=== PATIENT | female | born 1990 | race Caucasian/White ===

== ENCOUNTER → 2020-05-26 13:50 | Outpatient (BNVA) | payer MEDICAID, SELFPAY | PROVIDERS: Visit Provider Nurse Practitioner Women's Health | DX: O99.331 Smoking (tobacco) complicating pregnancy, first trimester (principal); F17.210 Nicotine dependence, cigarettes, uncomplicated; O26.841 Uterine size-date discrepancy, first trimester; Z3A.10 10 weeks gestation of pregnancy | CPT/HCPCS: 80307; 81000 ==

== ENCOUNTER → 2020-06-12 11:45 | Outpatient (BNVA) | payer MEDICAID, SELFPAY | PROVIDERS: Visit Provider Obstetrics & Gynecology | DX: Z34.81 Encounter for supervision of other normal pregnancy, first trimester (principal) | CPT/HCPCS: 80053; 80307; 81000; 85027; 86592; 86762; 86803; 86850; 86900; 87340; 87491; 87591; 88175 ==

== ENCOUNTER → 2020-06-29 13:53 | Outpatient (BNVA) | payer MEDICAID, SELFPAY | PROVIDERS: Visit Provider Obstetrics & Gynecology | DX: D69.6 Thrombocytopenia, unspecified (principal) | CPT/HCPCS: 85025 ==

== ENCOUNTER 2020-10-16 23:59 | Emergency (ER) | payer MEDICAID, SELFPAY ==
[2020-10-16 23:54] VITALS: BP 94/69; PULSE 98; RESP 14; TEMP 36.6; O2SAT 97; BMI 26.6
[2020-10-17] VITALS (25 sets, daily range): BP systolic 85–122; BP diastolic 45–92; PULSE 102–108; RESP 16–17; O2SAT 91–100
--- NOTE | 2020-10-17 00:11 | ED_ITS ---
Documented by User: Arslan Friend MD 10/17/20 00:21 HPI - Alcohol General: Chief Complaint: Alcohol Stated Complaint: ETOH Time Seen by Provider: 10/17/20 07:37 Source: patient and EMS Mode of arrival: EMS Limitations: other (intoxicated) History of Present Illness: HPI narrative: 30-year-old female who family called EMS as she is quite intoxicated. They states she has been drinking since . Patient is very intoxicated here and had been vomiting. She is awake and will answer some questions but does not give a very good history. She sta evy she has been drinking heavily since . Unknown drug use. She denies any suicidal or homicidal thoughts. She states she recently did get out of rehab. Associated symptoms: Deny abdominal pain, depression, nausea or vomiting Review of Systems Const: Denies: fever(s), chills, body aches or change in appetite Eyes: Denies: blurry vision or eye discomfort ENMT: Denies: throat pain or dental pain Card: Denies: chest pain Resp: Denies: dyspnea GI: Denies: abdominal pain, nausea, vomiting or diarrhea : Denies: dysuria Musc: Denies: neck pain or back pain Skin/Breast: Denies: rash Neuro: Denies: headache(s) Psych: Denies: depression Gino/Lymph: Denies: easy bruising All/Imm: Denies: urticaria PFSH ED PFSH: Medical History (Updated 10/17/20 @ 09:27 by Gus Crowley DO) No pertinent past medical history neghx:htn,dm,thyroid,dvt/pe,herpes Denies past partner hx of herpes Surgical History History of appendectomy Family History Denies family history of Colon cancer Ovarian cancer Diabetes Heart disease Hyperlipidemia Breast cancer Family history of thyroid problem Hypertension Uterine cancer Stroke Social History Additional social history: - Tobacco use: Smokes 1/2 ppd Alcohol use: Denies Drug use: Denies Physical Exam Const: COMMON NORMALS: patient oriented x3 GENERAL APPEARANCE: disheveled OTHER: severely intoxicated HENMT: COMMON NORMALS: normocephalic and atraumatic HEAD & SCALP: normocephalic and atraumatic Eye: COMMON NORMALS: Equal, round and reactive pupils present and EOMs intact bilaterally PUPIL: Yes Equal, round and reactive pupils present Neck/C-Spine: COMMON NORMALS: full ROM and supple Chest: COMMONS NORMALS: normal inspection of the chest and normal palpation of entire chest wall Resp: COMMON NORMALS: normal respiratory effort, No retractions, No use of accessory muscles and clear to auscultation bilaterally AUSCULTATION: clear to auscultation bilaterally Cardio: COMMON NORMALS: regular rate, regular rhythm and No murmurs present (Cardio) RATE: regular rate RHYTHM: regular rhythm GI: COMMON NORMALS: Normal to inspection, nondistended, normoactive bowel sounds present, Soft to palpation, non-tender and no masses PALPATION: Yes Soft to palpation Extremity: COMMON NORMALS: normal to inspection and full ROM Neuro: COMMON NORMALS: patient oriented x3, moves all extremities and no focal motor deficits Psych: COMMON NORMALS: mental status grossly normal, Normal thought process present and cooperative THOUGHT PROCESS: Normal thought process present Skin: COMMON NORMALS: no rashes or lesions noted and no wounds GENERAL SKIN EXAM: no rashes or lesions noted Course Vital Signs: Vital signs: Vital Signs Temperature 97.8 F 10/16/20 23:54 Pulse Rate 104 H 10/17/20 09:42 Respiratory Rate 17 10/17/20 09:42 Blood Pressure 121/91 10/17/20 09:42 Pulse Oximetry 99 10/17/20 09:42 MDM - Alcohol Lab Data: Labs: Lab Results 10/17/20 10/17/20 10/17/20 Range/Units 00:20 00:20 01:05 WBC 7.4 (4.0-10.0) 10^3/ uL RBC 4.97 (4.1-5.3) 10^6/u L Hgb 15.4 H (11.5-15.3) g/dL Hct 51.6 H (37.0-47.0) % MCV 103.8 H (81-99) fL MCH 31.0 (28.0-34.0) pg MCHC 29.8 L (30.0-36.0) g/dL RDW 12.8 (12.1-15.1) % Plt Count 315 (130-400) 10^3/c mm MPV 10.3 (7.4-10.4) fL Lymph % (Auto) Not Reportable [place] % (Auto) Not Reportable Lymph # (Auto) Not Reportable [place] # (Auto) Not Reportable Total Counted 100 (0-100) Atypical Lymphs % 0.0 (0-5) % Absolute Neutrophi ls 4.8 (1.4-6.5) 10^3/c mm Segmented Neutroph ils 65 % Abs Segm Neuts (Ma n) 4.8 (1.6-7.1) 10/cmm Band Neutrophils 0.0 % Abs Band Neuts (Ma n) 0.0 (0.0-1.2) 10^3/c mm Lymphocytes (Manua l) 30 % Monocytes (Manual) 3.0 % Absolute Monocytes 0.2 (0.1-0.6) 10^3/c mm Eosinophils (Manua l) 2 % Absolute Eosinophi ls 0.1 (0.0-0.7) 10^3/c mm Basophils (Manual) 0.0 % Absolute Basophils 0.0 (0.0-0.2) 10^3/c mm Platelet Estimate Normal (Normal) Anisocytosis 1+ H Macrocytosis 1+ H Sodium 143 (136-145) mmol/L Potassium 4.3 (3.5-5.1) mmol/L Chloride 100 (98-107) mmol/L Carbon Dioxide 29 (22-29) mmol/L Anion Gap 18.3 (5-19) BUN 14 (6-20) mg/dL Creatinine 0.5 (0.5-0.9) mg/dL GFR Calculation 144.9 H (90-130) mL/min Glucose 92 (65-115) mg/dL Calculated Osmolal ity 296 H (285-295) mOsm/k g Calcium 9.0 (8.5-10.5) mg/dL Total Bilirubin 0.2 (0.15-1.2) mg/dL AST 42 H (0-32) U/L ALT 31 (0-33) U/L Alkaline Phosphata se 80 (35-105) IU/L Total Protein 7.9 (6.6-8.7) g/dL Albumin 4.3 (3.5-5.2) g/dL Globulin 3.6 (1.3-4.6) g/dL HCG, Qual Negative (Negative) Salicylates < 0.3 L (3-10) mg/dL Urine Opiates Scre en (Negative) ng/mL Acetaminophen < 5.0 L (10-30) ug/mL Ur Barbiturates Sc reen (Negative) ng/mL Ur Phencyclidine S crn (Negative) ng/mL Ur Amphetamines Sc reen (Negative) ng/mL U Benzodiazepines Scrn (Negative) ng/mL Urine Cocaine Scre en (Negative) ng/mL U Marijuana (THC) Screen (Negative) ng/mL Ethyl Alcohol 513 H* (0-10) mg/dL 10/17/20 10/17/20 Range/Units 01:05 04:35 WBC (4.0-10.0) 10^3/ uL RBC (4.1-5.3) 10^6/u L Hgb (11.5-15.3) g/dL Hct (37.0-47.0) % MCV (81-99) fL MCH (28.0-34.0) pg MCHC (30.0-36.0) g/dL RDW (12.1-15.1) % Plt Count (130-400) 10^3/c mm MPV (7.4-10.4) fL Lymph % (Auto) [place] % (Auto) Lymph # (Auto) [place] # (Auto) Total Counted (0-100) Atypical Lymphs % (0-5) % Absolute Neutrophi ls (1.4-6.5) 10^3/c mm Segmented Neutroph ils % Abs Segm Neuts (Ma n) (1.6-7.1) 10/cmm Band Neutrophils % Abs Band Neuts (Ma n) (0.0-1.2) 10^3/c mm Lymphocytes (Manua l) % Monocytes (Manual) % Absolute Monocytes (0.1-0.6) 10^3/c mm Eosinophils (Manua l) % Absolute Eosinophi ls (0.0-0.7) 10^3/c mm Basophils (Manual) % Absolute Basophils (0.0-0.2) 10^3/c mm Platelet Estimate (Normal) Anisocytosis Macrocytosis Sodium (136-145) mmol/L Potassium (3.5-5.1) mmol/L Chloride (98-107) mmol/L Carbon Dioxide (22-29) mmol/L Anion Gap (5-19) BUN (6-20) mg/dL Creatinine (0.5-0.9) mg/dL GFR Calculation (90-130) mL/min Glucose (65-115) mg/dL Calculated Osmolal ity (285-295) mOsm/k g Calcium (8.5-10.5) mg/dL Total Bilirubin (0.15-1.2) mg/dL AST (0-32) U/L ALT (0-33) U/L Alkaline Phosphata se (35-105) IU/L Total Protein (6.6-8.7) g/dL Albumin (3.5-5.2) g/dL Globulin (1.3-4.6) g/dL HCG, Qual (Negative) Salicylates (3-10) mg/dL Urine Opiates Scre en Negative (Negative) ng/mL Acetaminophen (10-30) ug/mL Ur Barbiturates Sc reen Negative (Negative) ng/mL Ur Phencyclidine S crn Negative (Negative) ng/mL Ur Amphetamines Sc reen Negative (Negative) ng/mL U Benzodiazepines Scrn Negative (Negative) ng/mL Urine Cocaine Scre en Negative (Negative) ng/mL U Marijuana (THC) Screen Negative (Negative) ng/mL Ethyl Alcohol 354 H* (0-10) mg/dL EKG Data^: EKG 1: Attestation: I personally reviewed and interpreted this EKG as follows: EKG interpretation date: 10/17/20 EKG interpretation time: 00:24 Interpretation: sinus tach hr [address] or t wave abnormalities qrs 71 qtc 378 Discharge Plan Discharge Patient Disposition: Home Clinical Impression: Alcoholic intoxication, Alcohol abuse Condition: Stable Prescriptions: No Action prenat.vits,france,[id number] Tablet 1 tab PO DAILY RF: 0 Discharge Orders: Discharge ED (Routine); Ordered 10/17/20 Ordered By: Gus Crowley Discharge Diet: Usual diet Discharge Activity: Resume usual activity Activity Restrictions/Additional Instructions: Abstain from alcohol. Recommend you return to treatment center to assist with substance abuse issues. Sign Out Sign Out Data: Patient Sign Out occurred on 10/17/20 at 07:37. Patient's care was discussed, and care was transferred from to Gus Crowley DO. Coding Level of Care Code ED Sourcer for Chg Fwd Exam Comprehensive Documented by User: Gus Crowley DO 10/17/20 14:46 HPI - Alcohol General: Chief Complaint: Alcohol Stated Complaint: ETOH Time Seen by Provider: 10/17/20 07:37 [facility] ED PFSH: Medical History (Updated 10/17/20 @ 09:27 by Gus Crowley DO) No pertinent past medical history neghx:htn,dm,thyroid,dvt/pe,herpes Denies past partner hx of herpes Surgical History History of appendectomy Family History Denies family history of Colon cancer Ovarian cancer Diabetes Heart disease Hyperlipidemia Breast cancer Family history of thyroid problem Hypertension Uterine cancer Stroke Social History Additional social history: - Tobacco use: Smokes 1/2 ppd Alcohol use: Denies Drug use: Denies Course Vital Signs: Vital signs: Vital Signs Temperature 97.8 F 10/16/20 23:54 Pulse Rate 104 H 10/17/20 09:42 Respiratory Rate 17 10/17/20 09:42 Blood Pressure 121/91 10/17/20 09:42 Pulse Oximetry 99 10/17/20 09:42 MDM - Alcohol MDM Narrative: Medical decision making narrative: Care assumed a change of shift. Patient is now awake and alert blood alcohol had decreased somewhat the last time we checked it was still over 300 a few hours later she is awake alert and demanding to go home. There were affidavits written but there is nothing of substance in the affidavit to support a 96-hour hold. We will go ahead and discharge the patient had a conversation with her strongly encouraged her to consider abstinence from alcohol and turning returning back to [facility] for further assistance. Lab Data: Labs: Lab Results 10/17/20 10/17/20 10/17/20 Range/Units 00:20 00:20 01:05 WBC 7.4 (4.0-10.0) 10^3/ uL RBC 4.97 (4.1-5.3) 10^6/u L Hgb 15.4 H (11.5-15.3) g/dL Hct 51.6 H (37.0-47.0) % MCV 103.8 H (81-99) fL MCH 31.0 (28.0-34.0) pg MCHC 29.8 L (30.0-36.0) g/dL RDW 12.8 (12.1-15.1) % Plt Count 315 (130-400) 10^3/c mm MPV 10.3 (7.4-10.4) fL Lymph % (Auto) Not Reportable [place] % (Auto) Not Reportable Lymph # (Auto) Not Reportable [place] # (Auto) Not Reportable Total Counted 100 (0-100) Atypical Lymphs % 0.0 (0-5) % Absolute Neutrophi ls 4.8 (1.4-6.5) 10^3/c mm Segmented Neutroph ils 65 % Abs Segm Neuts (Ma n) 4.8 (1.6-7.1) 10/cmm Band Neutrophils 0.0 % Abs Band Neuts (Ma n) 0.0 (0.0-1.2) 10^3/c mm Lymphocytes (Manua l) 30 % Monocytes (Manual) 3.0 % Absolute Monocytes 0.2 (0.1-0.6) 10^3/c mm Eosinophils (Manua l) 2 % Absolute Eosinophi ls 0.1 (0.0-0.7) 10^3/c mm Basophils (Manual) 0.0 % Absolute Basophils 0.0 (0.0-0.2) 10^3/c mm Platelet Estimate Normal (Normal) Anisocytosis 1+ H Macrocytosis 1+ H Sodium 143 (136-145) mmol/L Potassium 4.3 (3.5-5.1) mmol/L Chloride 100 (98-107) mmol/L Carbon Dioxide 29 (22-29) mmol/L Anion Gap 18.3 (5-19) BUN 14 (6-20) mg/dL Creatinine 0.5 (0.5-0.9) mg/dL GFR Calculation 144.9 H (90-130) mL/min Glucose 92 (65-115) mg/dL Calculated Osmolal ity 296 H (285-295) mOsm/k g Calcium 9.0 (8.5-10.5) mg/dL Total Bilirubin 0.2 (0.15-1.2) mg/dL AST 42 H (0-32) U/L ALT 31 (0-33) U/L Alkaline Phosphata se 80 (35-105) IU/L Total Protein 7.9 (6.6-8.7) g/dL Albumin 4.3 (3.5-5.2) g/dL Globulin 3.6 (1.3-4.6) g/dL HCG, Qual Negative (Negative) Salicylates < 0.3 L (3-10) mg/dL Urine Opiates Scre en (Negative) ng/mL Acetaminophen < 5.0 L (10-30) ug/mL Ur Barbiturates Sc reen (Negative) ng/mL Ur Phencyclidine S crn (Negative) ng/mL Ur Amphetamines Sc reen (Negative) ng/mL U Benzodiazepines Scrn (Negative) ng/mL Urine Cocaine Scre en (Negative) ng/mL U Marijuana (THC) Screen (Negative) ng/mL Ethyl Alcohol 513 H* (0-10) mg/dL 10/17/20 10/17/20 Range/Units 01:05 04:35 WBC (4.0-10.0) 10^3/ uL RBC (4.1-5.3) 10^6/u L Hgb (11.5-15.3) g/dL Hct (37.0-47.0) % MCV (81-99) fL MCH (28.0-34.0) pg MCHC (30.0-36.0) g/dL RDW (12.1-15.1) % Plt Count (130-400) 10^3/c mm MPV (7.4-10.4) fL Lymph % (Auto) [place] % (Auto) Lymph # (Auto) [place] # (Auto) Total Counted (0-100) Atypical Lymphs % (0-5) % Absolute Neutrophi ls (1.4-6.5) 10^3/c mm Segmented Neutroph ils % Abs Segm Neuts (Ma n) (1.6-7.1) 10/cmm Band Neutrophils % Abs Band Neuts (Ma n) (0.0-1.2) 10^3/c mm Lymphocytes (Manua l) % Monocytes (Manual) % Absolute Monocytes (0.1-0.6) 10^3/c mm Eosinophils (Manua l) % Absolute Eosinophi ls (0.0-0.7) 10^3/c mm Basophils (Manual) % Absolute Basophils (0.0-0.2) 10^3/c mm Platelet Estimate (Normal) Anisocytosis Macrocytosis Sodium (136-145) mmol/L Potassium (3.5-5.1) mmol/L Chloride (98-107) mmol/L Carbon Dioxide (22-29) mmol/L Anion Gap (5-19) BUN (6-20) mg/dL Creatinine (0.5-0.9) mg/dL GFR Calculation (90-130) mL/min Glucose (65-115) mg/dL Calculated Osmolal ity (285-295) mOsm/k g Calcium (8.5-10.5) mg/dL Total Bilirubin (0.15-1.2) mg/dL AST (0-32) U/L ALT (0-33) U/L Alkaline Phosphata se (35-105) IU/L Total Protein (6.6-8.7) g/dL Albumin (3.5-5.2) g/dL Globulin (1.3-4.6) g/dL HCG, Qual (Negative) Salicylates (3-10) mg/dL Urine Opiates Scre en Negative (Negative) ng/mL Acetaminophen (10-30) ug/mL Ur Barbiturates Sc reen Negative (Negative) ng/mL Ur Phencyclidine S crn Negative (Negative) ng/mL Ur Amphetamines Sc reen Negative (Negative) ng/mL U Benzodiazepines Scrn Negative (Negative) ng/mL Urine Cocaine Scre en Negative (Negative) ng/mL U Marijuana (THC) Screen Negative (Negative) ng/mL Ethyl Alcohol 354 H* (0-10) mg/dL Discharge Plan Discharge Patient Disposition: Home Clinical Impression: Alcoholic intoxication, Alcohol abuse Condition: Stable Prescriptions: No Action prenat.vits,france,[id number] Tablet 1 tab PO DAILY RF: 0 Discharge Orders: Discharge ED (Routine); Ordered 10/17/20 Ordered By: Gus Crowley Discharge Diet: Usual diet Discharge Activity: Resume usual activity Activity Restrictions/Additional Instructions: Abstain from alcohol. Recommend you return to treatment center to assist with substance abuse issues. Sign Out Sign Out Data: Patient Sign Out occurred on 10/17/20 at 07:37. Patient's care was discussed, and care was transferred from to Gus Crowley DO. Coding Level of Care Code ED Sourcer for Mono Fwd Exam Comprehensive
[2020-10-17] MEDS: sodium chloride 0.9% 1,000 ML 999 ML IV ×2 (00:27→08:06)
[2020-10-17] MEDS: ondansetron 2 mg/ML SDV 2 mL 4 MG IVP (00:31)
[2020-10-17 00:32] LABS: Hematocrit 51.6 % (37.0-47.0); Hemoglobin 15.4 g/dL (11.5-15.3); Mean Corpuscular HGB Conc 29.8 g/dL (30.0-36.0); Mean Corpuscular Volume 103.8 fL (81-99); Mean Platelet Volume 10.3 fL (7.4-10.4); Platelet Count 315 10^3/cmm (130-400); Red Blood Count 4.97 10^6/uL (4.1-5.3); Red Cell Distribution Width 12.8 % (12.1-15.1); White Blood Count 7.4 10^3/uL (4.0-10.0)
[2020-10-17 00:53] LABS: Alanine Aminotransferase 31 U/L (0-33); Albumin Level 4.3 g/dL (3.5-5.2); Alkaline Phosphatase 80 IU/L (35-105); Anion Gap 18.3 (5-19); Aspartate Amino Transferase 42 U/L (0-32); Blood Urea Nitrogen 14 mg/dL (6-20); Carbon Dioxide 29 mmol/L (22-29); Chloride 100 mmol/L (98-107); Creatinine Clr Calc Pharmacy 164.2224; Globulin 3.6 g/dL (1.3-4.6); Glomerular Filtration Rate 144.9 mL/min (90-130); Glucose 92 mg/dL (65-115); Osmolality Calculated 296 mOsm/kg (285-295); Potassium 4.3 mmol/L (3.5-5.1); Sodium 143 mmol/L (136-145); Total Bilirubin 0.2 mg/dL (0.15-1.2); Total Protein 7.9 g/dL (6.6-8.7)
[2020-10-17 01:01] LABS: Acetaminophen < 5.0 ug/mL (10-30); Salicylate < 0.3 mg/dL (3-10)
[2020-10-17 01:02] LABS: Alcohol Level 513 mg/dL (0-10)
[2020-10-17 01:08] LABS: Absolute Eosinophils 0.1 10^3/cmm (0.0-0.7); Absolute Neutrophil 4.8 10^3/cmm (1.4-6.5); Absolute Segmented Neutrophil 4.8 10/cmm (1.6-7.1); Anisocytosis 1+; Eosinophils 2 %; Lymphocytes 30 %; Macrocytosis 1+; Monocytes Absolute 0.2 10^3/cmm (0.1-0.6); Platelet Estimate Normal (Normal); Segmented Neutrophils 65 %; Total Cells Counted 100 (0-100)
[2020-10-17] MEDS: LORazepam 2 mg/mL INJ 1 mL IVP (01:16)
[2020-10-17 01:40] LABS: Amphetamines Screen Urine Negative (Negative); Barbiturates Screen Urine Negative (Negative); Benzodiazepines Screen Urine Negative (Negative); Cocaine Screen Urine Negative (Negative); Opiate Screen Urine Negative (Negative); PCP Screen Urine Negative (Negative); THC Screen Urine Negative (Negative)
[2020-10-17 01:41] LABS: HCG Qualitative Urine. Negative (Negative)
[2020-10-17 05:44] LABS: Alcohol Level 354 mg/dL (0-10)
[2020-10-17] MEDS: multivitamin therapeutic Tablet 1 TAB PO (08:44)
--- NOTE | 2020-10-17 09:08 | PC.NURSE ---
patient in room drinking soda and eating a sandwich . she was at first very belligerent wanting to go smoke informed patient she could not she has since calmed down and is talking and drinking soda, parents were called and will come pick her up,
== END 2020-10-17 09:46 | disposition home or self-care (01) ==
PROVIDERS: Emergency Medicine; Emergency Provider Family Medicine
DX: F10.129 Alcohol abuse with intoxication, unspecified (principal); Y90.8 Blood alcohol level of 240 mg/100 ml or more; F17.210 Nicotine dependence, cigarettes, uncomplicated
CPT/HCPCS: 12345; 80053; 80306; 80307; 81025; 85007; 85025; 96361; 96374; 96375; 99284; J2060; J2405; J3411; J7030